=== PATIENT | male | born 1950 | race Caucasian/White ===

== ENCOUNTER 2017-10-05 09:18 | Inpatient (IN) | payer OTHER ==
[~2017-10-05] VITALS: Ht 167.6 cm; Wt 73.5 kg
[~2017-10-05 09:18] MED LIST: CIPRO500 MG PO; GAS RELIEF125 M1 PO; LEVSIN/SL0.125 MG PO; PERCOCET 10-3251 TAB; TOPROL XL25 M1; ULTRACET PO; ULTRAM50 MG PO
[2017-10-05] MEDS ORDERED: IMODIUM A-D2 M2 PO (09:45)
[2017-10-24] MEDS ORDERED: OMEPRAZOLE20 MG PO (11:43)
[2017-10-24] MEDS ORDERED: CATAPRES0.2 MG PO (11:43)
[2017-10-24] MEDS ORDERED: INTESTINEX680 M1 PO (11:43)
[2017-10-24] MEDS ORDERED: TYLENOL ARTHRI650 MG PO (11:43)
[2017-10-24] MEDS ORDERED: PERCOCET 5-3251 EACH PO (11:43)
[2017-10-24] MEDS ORDERED: VITAMIN B-12500 MC3 SL (11:43)
[2017-10-24] MEDS ORDERED: HYZAAR 100-251 EACH PO (11:43)
[2017-10-24] MEDS ORDERED: INTEGRA F CAPS1 EACH PO (11:43)
[2017-10-24] MEDS ORDERED: POLY119PG PO (11:45)
== END 2017-10-24 12:07 | disposition home health service (06) | DRG 982 ==
LOC: O/R 10-12 06:20 → SURH 10-12 06:20 → LDR 10-12 11:15 → SURH 10-12 15:41
PROVIDERS: Surgery; Urology
PROC: 0DQB0ZZ Repair Ileum, Open Approach (ICD-10-PCS; 2017-10-12)
PROC: 0WUF0JZ Supplement Abdominal Wall with Synthetic Substitute, Open Approach (ICD-10-PCS; 2017-10-12)
PROC: 0T2BX0Z Change Drainage Device in Bladder, External Approach (ICD-10-PCS; 2017-10-12)
PROC: 0TJB8ZZ Inspection of Bladder, Via Natural or Artificial Opening Endoscopic (ICD-10-PCS; 2017-10-12)
PROC: 0D1N0Z4 Bypass Sigmoid Colon to Cutaneous, Open Approach (ICD-10-PCS; principal; 2017-10-12 14:00)
PROC: 0DTP0ZZ Resection of Rectum, Open Approach (ICD-10-PCS; 2017-10-12 14:00)
PROC: 02HV33Z Insertion of Infusion Device into Superior Vena Cava, Percutaneous Approach (ICD-10-PCS; 2017-10-14)
PROC: 3E0436Z Introduction of Nutritional Substance into Central Vein, Percutaneous Approach (ICD-10-PCS; 2017-10-14)
PROC: 4A033R1 Measurement of Arterial Saturation, Peripheral, Percutaneous Approach (ICD-10-PCS; 2017-10-16)
PROC: B246ZZZ Ultrasonography of Right and Left Heart (ICD-10-PCS; 2017-10-18)
PROC: 30233N1 Transfusion of Nonautologous Red Blood Cells into Peripheral Vein, Percutaneous Approach (ICD-10-PCS; 2017-10-18)
DX: N36.0 Urethral fistula (principal); K43.3 Parastomal hernia with obstruction, without gangrene; K56.0 Paralytic ileus; K91.89 Other postprocedural complications and disorders of digestive system; I50.30 Unspecified diastolic (congestive) heart failure; J95.89 Other postprocedural complications and disorders of respiratory system, not elsewhere classified; J98.11 Atelectasis; Z85.048 Personal history of other malignant neoplasm of rectum, rectosigmoid junction, and anus; Z43.2 Encounter for attention to ileostomy; I25.10 Atherosclerotic heart disease of native coronary artery without angina pectoris; E78.4 Other hyperlipidemia; Z95.1 Presence of aortocoronary bypass graft; Z43.5 Encounter for attention to cystostomy; E66.8 Other obesity; Z68.34 Body mass index [BMI] 34.0-34.9, adult; D64.89 Other specified anemias; I11.0 Hypertensive heart disease with heart failure; I97.3 Postprocedural hypertension

== ENCOUNTER 2017-11-10 04:53 | Emergency (ER) | payer OTHER ==
[~2017-11-10] VITALS: Ht 167.6 cm; Wt 74.8 kg
[~2017-11-10 04:53] MED LIST changes: +CATAPRES0.2 MG PO; +HYZAAR 100-251 EACH PO; +IMODIUM A-D2 M2 PO; +INTEGRA F CAPS1 EACH PO; +INTESTINEX680 M1 PO; +OMEPRAZOLE20 MG PO; +PERCOCET 5-3251 EACH PO; +POLY119PG PO; +TYLENOL ARTHRI650 MG PO; +VITAMIN B-12500 MC3 SL
== END 2017-11-10 16:48 | disposition home or self-care (01) ==
LOC: ER 04:53
DX: T83.091A Other mechanical complication of indwelling urethral catheter, initial encounter (principal); Y73.1 Therapeutic (nonsurgical) and rehabilitative gastroenterology and urology devices associated with adverse incidents; Y92.89 Other specified places as the place of occurrence of the external cause

== ENCOUNTER 2018-04-13 11:49 | Inpatient (IN) | payer OTHER ==
[~2018-04-13] VITALS: Ht 167.6 cm; Wt 81.6 kg
[2018-04-13] MEDS ORDERED: DITROPAN XL10 MG (12:03)
[2018-04-13] MEDS ORDERED: CARVEDILOL25 MG (12:03)
[2018-04-13] MEDS ORDERED: AFEDITAB CR30 MG (12:03)
[2018-04-13] MEDS ORDERED: LOSARTAN-HCTZ1 EACH (12:04)
== END 2018-04-15 12:59 | disposition designated cancer center or children's hospital (05) | DRG 280 ==
LOC: ER 11:49 → ICU-2 17:37
PROC: B246ZZZ Ultrasonography of Right and Left Heart (ICD-10-PCS; principal; 2018-04-13)
DX: I21.4 Non-ST elevation (NSTEMI) myocardial infarction (principal); I50.33 Acute on chronic diastolic (congestive) heart failure; I24.8 Other forms of acute ischemic heart disease; I25.10 Atherosclerotic heart disease of native coronary artery without angina pectoris; Z95.1 Presence of aortocoronary bypass graft; F17.210 Nicotine dependence, cigarettes, uncomplicated; Z93.3 Colostomy status; Z93.59 Other cystostomy status; E78.49 Other hyperlipidemia; E66.8 Other obesity; Z68.34 Body mass index [BMI] 34.0-34.9, adult; Z85.048 Personal history of other malignant neoplasm of rectum, rectosigmoid junction, and anus; I11.0 Hypertensive heart disease with heart failure

== ENCOUNTER 2019-06-12 07:15 | Day surgery (SDC) | payer OTHER ==
[~2019-06-12 07:15] MED LIST changes: +AFEDITAB CR30 MG; +CARVEDILOL25 MG; +DITROPAN XL10 MG; +LOSARTAN-HCTZ1 EACH
== END 2019-06-12 12:15 | disposition home or self-care (01) ==
LOC: AMB-ENDOS 07:15
DX: D12.0 Benign neoplasm of cecum (principal); D12.4 Benign neoplasm of descending colon; Z93.3 Colostomy status

== ENCOUNTER 2022-12-26 10:54 | Emergency (ER) | payer OTHER ==
[~2022-12-26] VITALS: Ht 167.6 cm; Wt 71.7 kg
[2022-12-26] MEDS ORDERED: ST. JOSEPH ASPI81 M2 PO (11:02)
[2022-12-26] MEDS ORDERED: BRILINTA60 MG PO (11:03)
[2022-12-26] MEDS ORDERED: CILOSTAZOL50 MG PO (11:03)
[2022-12-26] MEDS ORDERED: AMLODIPINE BESYL5 MG PO (11:03)
== END 2022-12-26 19:02 | disposition designated cancer center or children's hospital (05) ==
LOC: ER 10:54
DX: T83.098A Other mechanical complication of other urinary catheter, initial encounter (principal); I10 Essential (primary) hypertension; Z93.3 Colostomy status; Z20.822 Contact with and (suspected) exposure to COVID-19
CPT/HCPCS: 36415; 74177; 96365; 96366; 99285; J2543; J7030; Q9965